=== PATIENT | female | born 1985 | race Caucasian/White ===

== ENCOUNTER 2017-02-27 00:09 | Emergency (ER) | payer BC ==
[2017-02-27] MEDS ORDERED: 0.9 % SODIUM CHLORIDE 1,000 ML BAG IV ONE ×2 (00:25→00:36)
--- NOTE | 2017-02-27 00:27 | Emergency Department Record ---
History of Present Illness - General Source: Patient Mode of Arrival: EMS Limitations: No limitations - History of Present Illness Initial Comments: The patient is here with police due to the patient not acting normally tonight. The reportedly got home from work at 6pm and noticed the patient not acting normally. She was delusional at times and thought her children may have been possessed by the devil and made a lot of references to Satan per EMS and police. After the police arrived on scene she then was walking her 2 children out to the car and crawled into the back of a blazer and curled up to go to sleep with them. Per her she has no hx of similar issues or problems but does have a hx of depression. She was taking a pill for depression but stopped it a month ago. There has been no suicidal or homicidal ideation. MD Complaint: Other Onset/Timin -: Days(s) Associated Psychiatric Symptoms: None History of same: No Improves With: None Worsens With: None <Frank Stanley - Last Filed: 02/27/17 06:57> <Edita Wheatley - Last Filed: 02/27/17 07:15> - General Chief Complaint: Crisis Evaluation Stated Complaint: PSYCH Time Seen by Provider: 02/27/17 00:20 - Related Data Home Medications Medication Instructions Recorded Confirmed Last Taken Vortioxetine Hydrobromide 10 mg PO DAILY tab 07/21/16 02/27/17 Unknown [Trintellix] Allergies Allergy/AdvReac Type Severity Reaction Status Date / Time No Known Allergies Allergy Unverified 07/21/16 09:31 Review of Systems Constitutional: Denies: Chills, Fever Eyes: Denies: Eye discharge ENT: Denies: Congestion Respiratory: Denies: Cough, Dyspnea Cardiovascular: Denies: Arrhythmia, Chest pain <Frank Stanley - Last Filed: 02/27/17 06:57> Past Medical History - SOCIAL HISTORY Smoking Status: Never smoker Alcohol Use: None - RESPIRATORY Hx Respiratory Disorders: No - CARDIOVASCULAR Hx Cardio Disorders: No - NEURO Hx Neuro Disorders: No - PSYCH Hx Anxiety: Yes Hx Depression: Yes <Frank Stanley - Last Filed: 02/27/17 06:57> Physical Exam - General General Appearance: Alert, No acute distress (Presently the patient is awake and talking and stating over and over "Abilio [id number] all of us.") - Head Head exam: Atraumatic, Normocephalic, Normal inspection - Eye Eye exam: Normal appearance, PERRL - ENT ENT exam: Normal exam, Normal orophraynx Throat exam: Normal inspection. negative: Tonsillar erythema, Tonsillar exudate - Neck Neck exam: Normal inspection, Full ROM. negative: Lymphadenopathy, Meningismus (The neck is very supple with no pain with ROM or stiffness.), Tenderness - Respiratory Respiratory exam: Normal lung sounds bilaterally. negative: Respiratory distress - Cardiovascular Cardiovascular Exam: Regular rate, Normal rhythm, Normal heart sounds - GI/Abdominal GI/Abdominal exam: Soft, Normal bowel sounds. negative: Tenderness - Extremities Extremities exam: Normal inspection, Full ROM, Normal capillary refill. negative: Tenderness - Neurological Neurological exam: Alert. negative: Motor sensory deficit, Oriented X3 - Psychiatric Psychiatric exam: Flat affect. negative: Depressed - Skin Skin exam: negative: Rash <Frank Stanley - Last Filed: 02/27/17 06:57> Course Vital Signs 02/27/17 00:19 Temperature 98.5 F Pulse Rate [ 87 Pulse Ox Probe] Respiratory 16 Rate Blood Pressure 133/82 [Left Arm] Pulse Ox 99 - Reevaluation(s) Reevaluation #1: The patient is doing well. She was just yelling at the nurse because she felt the nurse was lying to her. Now she is singing "Abilio [id number] us all", over and over while restrained in the room. 02/27/17 00:40 Reevaluation #2: The patient is resting comfortably and is answering questions at times. She denies any pain or discomfort and continues to verbalize the belief that we are with Satan and that Abilio will save us. The patient's did arrive and did corroborate the police officers understanding of events. He stated the patient has no hx of similar issues and began to act innapropriately when he got home from work at 7pm. He did state the patient began to see a psychiatrist in the last 8 months due to issues relating to her sisters . She was taking an antidepressant but stopped a month ago. She does not take illegal drugs and does not drink alcohol and has not been ill recently. 02/27/17 01:56 Reevaluation #3: The patient is resting comfortably with normal vital signs. She is calm and out of restraints and is awake but will not speak to us at this time. We are still in the process of attempting to get her accepted into a psych. facility. 02/27/17 03:34 Reevaluation #4: The patient is doing better at this time. Her mother is at the bedside and the patient now is opening her eyes and talking. Her speech is clear and she denies any pain or discomfort. She is still delusional at times but not combative or suicidal. 02/27/17 04:34 02/27/17 06:58 The patient is resting comfortably. We are still waiting on Psych. placement. Her care will be turned over to Dr. Wheatley at 7am due to shift change. <Frank Stanley - Last Filed: 02/27/17 06:57> Vital Signs 02/27/17 02/27/17 02/27/17 00:19 01:12 03:06 Temperature 98.5 F 98.7 F 98.8 F Pulse Rate [ 87 95 H 98 H Pulse Ox Probe] Respiratory 16 16 16 Rate Blood Pressure 133/82 133/82 115/72 [Left Arm] Pulse Ox 99 100 100 02/27/17 02/27/17 03:58 04:49 Temperature 99.2 F Pulse Rate [ 77 89 Pulse Ox Probe] Respiratory 16 16 Rate Blood Pressure 119/88 113/81 [Left Arm] Pulse Ox 96 100 <Edita Wheatley - Last Filed: 02/27/17 07:15> Medical Decision Making - Data Complexity MDM Data: Labs Ordered and/or Reviewed, X-Ray Ordered and/or Reviewed, EKG Ordered and/or Reviewed - Lab Data Result diagrams: 02/27/17 00:40 02/27/17 00:40 - EKG Data -: EKG Interpreted by Me (Sinus tach at 117. Neg ST-T changes. ) - Radiology Data Radiology results: Report reviewed (Head CT: No acute changes.) <Frank Stanley - Last Filed: 02/27/17 06:57> - Lab Data Result diagrams: 02/27/17 00:40 02/27/17 00:40 Lab Results 02/27/17 02/27/17 02/27/17 Range/Units 00:40 00:40 00:40 WBC 11.4 (4.2-12.2) K/uL RBC 4.84 (3.80-5.40) M/uL Hgb 14.9 (11.6-16.0) gm/dl Hct 43.5 (35.0-47.0) % MCV 89.9 (81-97) fl MCH 30.8 (27-33) pg MCHC 34.3 (32-36) g/dl RDW 12.8 (11.5-14.5) % Plt Count 235 (130-400) K/uL MPV 11.9 H (7.4-10.4) fl Neutrophils % 81.0 H (47-80) % Band Neutrophils % 0.0 (0-5) % Eosinophils % Not Reportable Basophils % Not Reportable Lymphocytes 13.0 L (16-45) % Monocytes 6.0 (0-9) % Basophils 0.0 (0-6) % Eosinophil Count 0.0 (0-6) % Sodium 141 (136-145) mmol/L Potassium 3.1 L (3.5-5.1) mmol/L Chloride 108 H (98-107) mmol/L Carbon Dioxide 21.1 L (22-30) mmol/L Anion Gap 11.9 (7-16) BUN 11 (7-17) mg/dL Creatinine 0.7 (0.52-1.04) mg/dL Estimated GFR > 60 ml/min Random Glucose 178 H (70-110) mg/dL Calcium 9.3 (8.5-10.1) mg/dL Total Bilirubin 0.84 (0.2-1.3) mg/dL AST 49 H (14-36) U/L ALT 25 (9-52) U/L Alkaline Phosphatase 52 (38-126) U/L C-Reactive Protein (0.0-0.9) mg/dL Total Protein 8.4 H (6.3-8.2) gm/dL Albumin 5.2 H (3.5-5.0) gm/dL Globulin 3.2 (1.4-4.8) gm/dL Albumin/Globulin Ratio 1.6 (1.1-1.8) TSH 1.65 (0.465-4.68) uIU/ml Urine Color Urine Appearance Urine pH (5.0-8.0) Ur Specific [place] (1.002-1.030) Urine Protein (NEGATIVE) Urine Glucose (UA) (NEGATIVE) Urine Ketones (NEGATIVE) Urine Blood (NEGATIVE) Urine Nitrite (NEGATIVE) Urine Bilirubin (NEGATIVE) Urine Urobilinogen (0.20 - 1.00) E.U./dL Ur Leukocyte Esterase (NEGATIVE) Urine RBC (NONE SEEN) Urine WBC (0-2/hpf) Ur Epithelial Cells (FEW) Amorphous Sediment Urine Mucus Urine HCG, Qual (NEGATIVE) Salicylates < 1.0 L (2.8-20.0) mg/dL Urine Opiates Screen Ur Oxycodone Screen Urine Methadone Screen Ur Propoxyphene Screen Acetaminophen < 10.0 L (10.0-30.0) ug/mL Ur Barbituates Screen Ur Tricyclics Screen Ur Phencyclidine Scrn Ur Amphetamine Screen U Methamphetamines Scrn U Benzodiazepines Scrn Urine Cocaine Screen Urine Cannabis Screen Ethyl Alcohol 0.010 (0-0.010) g/dL 02/27/17 02/27/17 02/27/17 Range/Units 00:50 01:30 01:30 WBC (4.2-12.2) K/uL RBC (3.80-5.40) M/uL Hgb (11.6-16.0) gm/dl Hct (35.0-47.0) % MCV (81-97) fl MCH (27-33) pg MCHC (32-36) g/dl RDW (11.5-14.5) % Plt Count (130-400) K/uL MPV (7.4-10.4) fl Neutrophils % (47-80) % Band Neutrophils % (0-5) % Eosinophils % Basophils % Lymphocytes (16-45) % Monocytes (0-9) % Basophils (0-6) % Eosinophil Count (0-6) % Sodium (136-145) mmol/L Potassium (3.5-5.1) mmol/L Chloride (98-107) mmol/L Carbon Dioxide (22-30) mmol/L Anion Gap (7-16) BUN (7-17) mg/dL Creatinine (0.52-1.04) mg/dL Estimated GFR ml/min Random Glucose (70-110) mg/dL Calcium (8.5-10.1) mg/dL Total Bilirubin (0.2-1.3) mg/dL AST (14-36) U/L ALT (9-52) U/L Alkaline Phosphatase (38-126) U/L C-Reactive Protein < 0.5 (0.0-0.9) mg/dL Total Protein (6.3-8.2) gm/dL Albumin (3.5-5.0) gm/dL Globulin (1.4-4.8) gm/dL Albumin/Globulin Ratio (1.1-1.8) TSH (0.465-4.68) uIU/ml Urine Color Urine Appearance Urine pH (5.0-8.0) Ur Specific [place] (1.002-1.030) Urine Protein (NEGATIVE) Urine Glucose (UA) (NEGATIVE) Urine Ketones (NEGATIVE) Urine Blood (NEGATIVE) Urine Nitrite (NEGATIVE) Urine Bilirubin (NEGATIVE) Urine Urobilinogen (0.20 - 1.00) E.U./dL Ur Leukocyte Esterase (NEGATIVE) Urine RBC (NONE SEEN) Urine WBC (0-2/hpf) Ur Epithelial Cells (FEW) Amorphous Sediment Urine Mucus Urine HCG, Qual Negative (NEGATIVE) Salicylates (2.8-20.0) mg/dL Urine Opiates Screen Not detected Ur Oxycodone Screen Not detected Urine Methadone Screen Not detected Ur Propoxyphene Screen Not detected Acetaminophen (10.0-30.0) ug/mL Ur Barbituates Screen Not detected Ur Tricyclics Screen Not detected Ur Phencyclidine Scrn Not detected Ur Amphetamine Screen Not detected U Methamphetamines Scrn Not detected U Benzodiazepines Scrn Not detected Urine Cocaine Screen Not detected Urine Cannabis Screen Detected Ethyl Alcohol (0-0.010) g/dL 02/27/17 Range/Units 01:30 WBC (4.2-12.2) K/uL RBC (3.80-5.40) M/uL Hgb (11.6-16.0) gm/dl Hct (35.0-47.0) % MCV (81-97) fl MCH (27-33) pg MCHC (32-36) g/dl RDW (11.5-14.5) % Plt Count (130-400) K/uL MPV (7.4-10.4) fl Neutrophils % (47-80) % Band Neutrophils % (0-5) % Eosinophils % Basophils % Lymphocytes (16-45) % Monocytes (0-9) % Basophils (0-6) % Eosinophil Count (0-6) % Sodium (136-145) mmol/L Potassium (3.5-5.1) mmol/L Chloride (98-107) mmol/L Carbon Dioxide (22-30) mmol/L Anion Gap (7-16) BUN (7-17) mg/dL Creatinine (0.52-1.04) mg/dL Estimated GFR ml/min Random Glucose (70-110) mg/dL Calcium (8.5-10.1) mg/dL Total Bilirubin (0.2-1.3) mg/dL AST (14-36) U/L ALT (9-52) U/L Alkaline Phosphatase (38-126) U/L C-Reactive Protein (0.0-0.9) mg/dL Total Protein (6.3-8.2) gm/dL Albumin (3.5-5.0) gm/dL Globulin (1.4-4.8) gm/dL Albumin/Globulin Ratio (1.1-1.8) TSH (0.465-4.68) uIU/ml Urine Color Yellow Urine Appearance Clear Urine pH 6.0 (5.0-8.0) Ur Specific [place] >= 1.030 (1.002-1.030) Urine Protein 100 mg/dl H (NEGATIVE) Urine Glucose (UA) Negative (NEGATIVE) Urine Ketones 15 mg/dl H (NEGATIVE) Urine Blood Negative (NEGATIVE) Urine Nitrite Negative (NEGATIVE) Urine Bilirubin Small H (NEGATIVE) Urine Urobilinogen 0.2 (0.20 - 1.00) E.U./dL Ur Leukocyte Esterase Negative (NEGATIVE) Urine RBC 0 - 2 (NONE SEEN) Urine WBC 0 - 2 (0-2/hpf) Ur Epithelial Cells 3 - 6 (FEW) Amorphous Sediment 2+ Urine Mucus Moderate Urine HCG, Qual (NEGATIVE) Salicylates (2.8-20.0) mg/dL Urine Opiates Screen Ur Oxycodone Screen Urine Methadone Screen Ur Propoxyphene Screen Acetaminophen (10.0-30.0) ug/mL Ur Barbituates Screen Ur Tricyclics Screen Ur Phencyclidine Scrn Ur Amphetamine Screen U Methamphetamines Scrn U Benzodiazepines Scrn Urine Cocaine Screen Urine Cannabis Screen Ethyl Alcohol (0-0.010) g/dL <Edita Wheatley L - Last Filed: 02/27/17 07:15> Disposition Disposition: Transfer Reason For Transfer: Psychiatric. Time Discussed w/Accepting Physician: 06:00 Time of Disposition: 06:00 <Frank Stanley - Last Filed: 02/27/17 06:57> Disposition: Transfer Transfer To: [facility] Reason For Transfer: Psychiatric. Accepting Physician: dr adams Time Discussed w/Accepting Physician: 07:10 <Edita Wheatley - Last Filed: 02/27/17 07:15> Clinical Impression: Acute psychosis Disposition: Acute Care Hospital Transfer Condition: (2) Stable Forms: Patient Portal Access
[2017-02-27 01:01] LABS: HEMATOCRIT 43.5 % (35.0-47.0); HEMOGLOBIN 14.9 gm/dl (11.6-16.0); MEAN CELL VOLUME 89.9 fl (81-97); MEAN CORPUSCULAR HEMOGLOBIN 30.8 pg (27-33); MEAN CORPUSCULAR HGB CONC 34.3 g/dl (32-36); MEAN PLATELET VOLUME 11.9 fl (7.4-10.4); PLATELET COUNT 235 K/uL (130-400); RED BLOOD COUNT 4.84 M/uL (3.80-5.40); RED CELL DISTRIBUTION WIDTH 12.8 % (11.5-14.5); WHITE BLOOD COUNT W/O DIFF 11.4 K/uL (4.2-12.2)
[2017-02-27 01:12] LABS: ALB/GLOB RATIO 1.6 (1.1-1.8); ALBUMIN 5.2 gm/dL (3.5-5.0); ALKALINE PHOSPHATASE 52 U/L (38-126); ALT/SGPT 25 U/L (9-52); ANION GAP 11.9 (7-16); AST/SGOT 49 U/L (14-36); BILIRUBIN,TOTAL 0.84 mg/dL (0.2-1.3); BLOOD UREA NITROGEN 11 mg/dL (7-17); CARBON DIOXIDE 21.1 mmol/L (22-30); CREATININE 0.7 mg/dL (0.52-1.04); EST GLOMERULAR FILTRATION RATE > 60 ml/min; GLUCOSE,RANDOM 178 mg/dL (70-110); TOTAL PROTEIN 8.4 gm/dL (6.3-8.2)
[2017-02-27 01:15] LABS: ACETAMINOPHEN < 10.0 ug/mL (10.0-30.0); SALICYLATE < 1.0 mg/dL (2.8-20.0)
[2017-02-27] MEDS ORDERED: POTASSIUM CHLORIDE 20 MEQ TABLET PO ONE (01:22)
[2017-02-27] MEDS ORDERED: 0.9 % SODIUM CHLORIDE 1000ML 1,000 ML IV ONE (01:31)
[2017-02-27 01:38] LABS: AMPHETAMINE SCREEN URINE NOT DETECTED; BARBITURATE SCREEN URINE NOT DETECTED; BENZODIAZEPINE SCREEN URINE NOT DETECTED; COCAINE SCREEN URINE NOT DETECTED; METHADONE SCREEN URINE NOT DETECTED; METHAMPHETAMINE SCREEN NOT DETECTED; OPIATE SCREEN URINE NOT DETECTED; OXYCODONE SCREEN URINE NOT DETECTED; PHENCYCLIDINE SCREEN URINE NOT DETECTED; PROPOXYPHENE SCREEN URINE NOT DETECTED; THC SCREEN URINE DETECTED; TRICYCLIC ANTIDEPRESSANT SCRN NOT DETECTED
[2017-02-27 01:43] LABS: URINE APPEARANCE CLEAR; URINE BILIRUBIN SMALL (NEGATIVE); URINE BLOOD NEGATIVE (NEGATIVE); URINE COLOR YELLOW; URINE GLUCOSE (UA) NEGATIVE (NEGATIVE); URINE KETONE 15 mg/dL (NEGATIVE); URINE LEUKOCYTE ESTERASE NEGATIVE (NEGATIVE); URINE NITRITE NEGATIVE (NEGATIVE); URINE UROBILINOGEN 0.2 E.U./dL (0.20 - 1.00)
[2017-02-27 01:56] LABS: URINE AMORPHOUS SEDIMENT 2+; URINE MUCUS MODERATE; URINE RBC 0 - 2 (NONE SEEN); URINE WBC 0 - 2 (0-2/hpf)
--- NOTE | 2017-02-28 10:23 | CT SCAN REPORT ---
EXAM: CT SCAN HEAD WO CONTRAST HISTORY: CONFUSION. TECHNIQUE: Routine noncontrast CT examination of the head is performed. COMPARISON: None. FINDINGS: Evaluation of the posterior fossa is mildly limited by beam- hardening artifact. The ventricles and subarachnoid spaces are normal in size. No area of abnormally increased or decreased attenuation is noted throughout the brain substance. The kearney-white interfaces are distinct. No abnormal extraaxial fluid collection. No skull fracture identified. The visualized paranasal sinuses and mastoid air cells are clear. The orbits, as visualized, are unremarkable. IMPRESSION: NEGATIVE NONCONTRAST CT APPEARANCE OF THE HEAD. JOB NUMBER: [id number]
== END 2017-02-27 07:50 | disposition short-term general hospital (02) ==
LOC: ER 00:09
DX: F23 Brief psychotic disorder (principal); Z79.899 Other long term (current) drug therapy
CPT/HCPCS: 99285 ×2; 96360; 84132; 86140; 80053; 81001; 84443; 81025; 80305; 85027; 70450; 93005; 93010; G0480 ×3; 80320; 80329; J7030